=== PATIENT | female | born 2000 | race Hispanic/Latino ===

== ENCOUNTER 2022-01-16 13:40 | Observation (INO) | payer SELFPAY ==
[~2022-01-16] VITALS: Ht 149.9 cm; Wt 51.7 kg
[2022-01-16 14:24] LABS: APPEARANCE,URINE CLOUDY (CLEAR); BILIRUBIN,URINE NEGATIVE (NEGATIVE); COLOR,URINE YELLOW (YELLOW); GLUCOSE, URINE (UA) NEGATIVE (NEGATIVE); KETONES,URINE NEGATIVE (NEGATIVE); LEUKOCYTE ESTERASE ,URINE MODERATE (NEGATIVE); NITRATE,URINE NEGATIVE (NEGATIVE); OCCULT BLOOD,URINE NEGATIVE (NEGATIVE); PROTEIN,URINE 30 mg/dL (NEGATIVE); UROBILINOGEN,URINE 0.2 mg/dL (0.2-1.0)
[2022-01-16 14:31] LABS: AMPHET/METH SCREEN,URINE NEGATIVE (NEGATIVE); BARBITURATE SCREEN, URINE NEGATIVE (NEGATIVE); BENZODIAZEPINES SCREEN,URINE NEGATIVE (NEGATIVE); CANNABINOID SCREEN,URINE NEGATIVE (NEGATIVE); COCAINE SCREEN,URINE NEGATIVE (NEGATIVE); OPIATE SCREEN,URINE NEGATIVE (NEGATIVE); PHENCYCLIDINE SCREEN,URINE NEGATIVE (NEGATIVE)
[2022-01-16 15:15] LABS: RBC,URINE 0-1 /HPF (0-1)
[2022-01-16 15:16] LABS: BACTERIA,URINE Few /HPF (None Seen); MUCUS,URINE Rare LPF (None Seen); SQUAMOUS EPITHELIAL CELL,UR Moderate /HPF (0-2)
[2022-01-16 15:45] VITALS: BP 118/70
[2022-01-16] MEDS ORDERED: CEFTRIAXONE 1G VIAL ONE (15:54)
[2022-01-16] MEDS ORDERED: LIDOCAINE HCL 1% MDV 50ML VIAL ONE (15:55)
[2022-01-16] MEDS ORDERED: CEPH500B PO (16:18)
[2022-01-16] MEDS ORDERED: CEFTRIAXONE 1G VIAL IM ONE (16:30)
== END 2022-01-16 15:30 | disposition home or self-care (01) ==
LOC: EDH 13:40 → LDH 13:41 → EDH 13:58
PROVIDERS: ADMIT Obstetrics & Gynecology; ATTEND Obstetrics & Gynecology
DX: O23.43 Unspecified infection of urinary tract in pregnancy, third trimester (principal); Z20.822 Contact with and (suspected) exposure to COVID-19; O99.513 Diseases of the respiratory system complicating pregnancy, third trimester; J02.9 Acute pharyngitis, unspecified; Z3A.37 37 weeks gestation of pregnancy
CPT/HCPCS: 80305; 81001; 87088; 87635; 87804 ×2; 87880; 96372; 99284; G0378; J0696; J3490